=== PATIENT | male | born 1975 | race Caucasian/White ===

== ENCOUNTER 2022-11-07 14:32 | Emergency (ER) | payer OTHER, SELFPAY ==
--- NOTE | ~2022-11-07 | CT_ITS ---
EXAMINATION: CT ABDOMEN AND PELVIS WITHOUT CONTRAST CLINICAL INFORMATION: r flank pain ?stone. COMPARISON: No pertinent prior studies are available for comparison. TECHNIQUE: Multidetector volumetric imaging was performed from the superior aspect of the liver through the pubic symphysis without contrast per renal stone protocol. Sagittal and coronal reformatted images were obtained on the technologist workstation. This CT examination was performed using dose optimization techniques as appropriate, variously including the following: *Automated exposure control *Adjustment of mA and/or kV according to patient size (this includes techniques or standardized protocols for targeted exams where dose is matched to indication/reason for exam; i.e. extremities or head) *Use of iterative reconstruction technique DLP: 564 mGy-cm. FINDINGS: LUNG BASES: Minimal bibasilar dependent atelectasis LIVER, GALLBLADDER, BILIARY TREE: The non-contrast liver is normal in size, shape, and attenuation. No focal hepatic lesion or biliary ductal dilatation is present. The gallbladder is distended but otherwise unremarkable with no evidence of radiopaque gallstones, gallbladder wall thickening, or obvious pericholecystic inflammatory changes. PANCREAS: Unremarkable. SPLEEN: Unremarkable. ADRENAL GLANDS: Unremarkable. KIDNEYS AND URETERS: Small low-attenuation probable cyst in the anterior upper pole of the left kidney, too small to characterize further on this noncontrast examination there is also similar low-attenuation probable small cyst in the lateral mid to lower pole of the contralateral right kidney. The kidneys are otherwise normal in size, shape, and attenuation. No hydronephrosis, hydroureter, or perinephric stranding. There is a nonobstructing 3 mm calcification in the lower pole collecting system of the left kidney. The right collecting system and right ureter are nondilated however there is a 4 mm calcification in the right distal ureter approximately 2 cm proximal to the right ureterovesicular junction BLADDER: Decompressed but otherwise unremarkable GASTROINTESTINAL TRACT: The small and large bowel are unremarkable. The appendix is unremarkable. ABDOMINAL WALL: No significant hernia is appreciated. LYMPHOVASCULAR STRUCTURES: No lymphadenopathy. The aorta is unremarkable.. PELVIC VISCERA: Unremarkable. OSSEUS STRUCTURES: Degenerative changes at L5/S1. CT/CT abdomen pelvis wo IV con IMPRESSION: 4 mm calcification in the right distal ureter approximately 2 cm proximal to the right ureterovesicular junction. No significant hydronephrosis or hydroureter. Nonobstructing 3 mm calcification in the lower pole collecting system of the left kidney.
--- NOTE | ~2022-11-07 | US_ITS ---
EXAMINATION: US RETROPERITONEAL LIMITED (RENAL ONLY) CLINICAL INFORMATION: Right flank pain, hematuria. COMPARISON: None available. TECHNIQUE: Routine grayscale imaging of kidneys was performed. FINDINGS: RIGHT KIDNEY: 12.1 x 4.9 x 5.5 cm (SAG x AP x TRV). The kidney is normal in size, contour, and echogenicity. Renal cortical thickness is normal. There is an anechoic cyst mid/lower pole measuring 0.9 x 0.6 x 0.8. No additional cyst seen. There are no echogenic stones or hydronephrosis. LEFT KIDNEY: 12.1 x 5.9 x 5.7 cm (SAG x AP x TRV). The kidney is normal in size, contour, and echogenicity. Renal cortical thickness is normal. No calculi or focal parenchymal lesions. No hydronephrosis. US/US renal BI IMPRESSION: Simple anechoic cyst mid/lower pole right kidney. No followup needed. Unremarkable left kidney.
[2022-11-07 15:28] VITALS: BP 115/70; PULSE 80; RESP 16; TEMP 36.7; O2SAT 99; BMI 28.7
--- NOTE | 2022-11-07 15:28 | ED_ITS ---
HPI - General Adult General Chief complaint: Abdominal Pain Stated complaint: pain r kidney area Time Seen by Provider: 11/07/22 21:28 Source: patient Mode of arrival: ambulatory Limitations: no limitations History of Present Illness HPI narrative: Patient with No significant past medical history noticed sudden onset of sharp pain in the right flank area for last 2 days off and on with yao hematuria nausea no family history of kidney stone pain radiating to the right lower abdominal area no fever no chills no dysuria or frequency no testicular pain Related Data Previous Rx's Medication Instructions Recorded tramadol 50 mg tablet 50 mg PO Q6H PRN pain #20 tabs 11/07/22 Allergies Allergy/AdvReac Type Severity Reaction Status Date / Time No Known Allergies Allergy Verified 11/07/22 15:30 Review of Systems Review of Systems: Yes all other systems are reviewed and are negative [facility] Social History Social History Alcohol intake: never Smoked in Last 30 Days: No Advance Directives: No Advance Directives Information Provided: Yes Physical Exam ED Vital Signs: Vital Signs - 24 hr 11/07/22 15:28 11/07/22 21:57 Temperature 98.1 F 97.9 F Pulse Rate 80 77 Respiratory Rate 16 18 Blood Pressure 115/70 123/82 Pulse Oximetry 99 98 Oxygen Delivery Method Room Air Room Air BMI result Body Mass Index 28.7 Appearance: Alert. Oriented X3. No acute distress. ENT: Pharynx normal. Oral Mucosa moist Neck: Normal inspection. Neck supple. CVS: Normal heart rate and rhythm. Pulses normal. Respiratory: No respiratory distress. Equal air entry bilateral, no wheezing/rales/rhonchi Abdomen: Soft and nontender. Bowel sounds are present, no mass palpable, no CVA tenderness Skin: Skin warm and dry. Normal skin color. Normal skin turgor. Extremities: No lower extremity edema. No calf tenderness Neuro: Oriented X 3. Course Course Course Narrative: RME: 47yo M w/no sig PMHx c/o R flank pain x few days w/hematuria noted today. Admits pain improves with using the bathroom. Also reports nausea. denies fever, vomiting Labs, UA, renal US ordered Full HPI, ROS and PE to be performed by primary ED provider. Medical Decision Making Medical Decision Making MDM Narrative: Patient with right flank pain likely kidney stone ultrasound shows small cysts no hydronephrosis will get CT scan to rule out stone/mass Patient's CT scan showed 4 mm distal right ureteric stone nonobstructive patient is pain-free at this time of discharge patient home advised to follow-up with urologist will give him tramadol for pain Lab Data MDM Lab Attestation statement: I reviewed the patient's lab results. 11/07/22 15:57 11/07/22 15:57 Labs: Lab Results 11/07/22 11/07/22 11/07/22 Range/Units 15:57 15:57 16:05 WBC 7.8 (4.8-10.8) X10*3/uL RBC 5.78 (4.60-5.80) X10*6/uL Hgb 14.7 (14.0-18.0) g/dl Hct 47.2 (42.0-52.0) % MCV 81.7 (80.0-98.0) fL MCH 25.4 L (27.0-33.0) pg MCHC 31.1 (31.0-36.0) g/dl RDW 13.2 (11.0-16.0) % Plt Count 233 (160-400) X10*3/uL MPV 11.3 (9.4-12.4) fL Immature Gran % (Auto) 0.3 (0.0-0.4) % Neut % (Auto) 68.8 (45-73) % Lymph % (Auto) 19.2 L (20-40) % [place] % (Auto) 10.8 (2-11) % Eos % (Auto) 0.6 (0-4) % Baso % (Auto) 0.3 (0-2) % Lymph # (Auto) 1.5 (1.2-4.9) X10*3/uL [place] # (Auto) 0.8 (0.1-1.2) X10*3/uL Eos # (Auto) 0.1 (0.0-0.4) X10*3/uL Baso # (Auto) 0.0 (0.0-0.2) X10*3/uL Abs Immat Gran (auto) 0.02 (0.00-0.03) X10*3/uL Absolute Neuts (auto) 5.4 (2.0-8.3) x10*3/uL Absolute Nucleated RBC 0.000 (0.0-0.012) X10*3/uL Nucleated RBC % (auto) 0.0 (0.0-0.2) /100WBC Sodium 143 (135-145) mmol/L Potassium 3.8 (3.3-5.1) mmol/L Chloride 109 H (96-108) mmol/L Carbon Dioxide 28 (22-29) mmol/L Anion Gap 10 L (12-20) BUN 15 (9-16) mg/dL Creatinine 0.93 (0.5-1.4) mg/dL Estim Creat Clear Calc 111.2 Estimated GFR > 60 Random Glucose 76 (60-115) mg/dL Calcium 9.2 (8.4-10.2) mg/dL Total Bilirubin 0.5 (0.0-1.0) mg/dL Direct Bilirubin 0.2 (0.0-0.5) mg/dL AST 18 (5-37) U/L ALT 23 (0-40) U/L Alkaline Phosphatase 94 (39-117) U/L Total Protein 7.0 (6.5-8.0) g/dL Albumin 4.0 (3.5-5.0) g/dL Lipase 22 (8-78) U/L Urine Color Yellow Urine Appearance Clear Urine pH 6.0 (5.0-9.0) Ur Specific [place] 1.025 (1.005-1.025) Urine Protein Trace (Neg-Trace) mg/dL Urine Glucose (UA) 100 H (Negative) mg/dL Urine Ketones Negative (Negative) mg/dL Urine Blood Large (3+) H (Negative) Urine Nitrite Negative (Negative) Ur Leukocyte Esterase Negative (Negative) Urine RBC >20 H (0-2) /HPF Urine WBC 0-5 (0-5) /HPF Ur Squamous Epith Cells 0-2 (0-2) /HPF Urine Bacteria None Seen (None Seen) Hyaline Casts 0-2 (0-2) /LPF Radiology Impression Discussion of test interpretation with radiology: I have reviewed the radiologist's reading. Radiologist Impression: [address] [address] [address] Scan Report Signed Patient: Yasmani Camacho MR#: [id number] : 1975 Acct:[id number] Age/Sex: 47 / M ADM Date: 11/07/22 Loc: HO.ED Attending Dr: Ordering Physician: Zack Head MD Date of Service: 11/07/22 Procedure(s): CT abdomen pelvis wo IV con Accession Number(s): [id number] cc: Zack Head MD~ EXAMINATION: CT ABDOMEN AND PELVIS WITHOUT CONTRAST CLINICAL INFORMATION: r flank pain ?stone. COMPARISON: No pertinent prior studies are available for comparison. TECHNIQUE: Multidetector volumetric imaging was performed from the superior aspect of the liver through the pubic symphysis without contrast per renal stone protocol. Sagittal and coronal reformatted images were obtained on the technologist workstation. This CT examination was performed using dose optimization techniques as appropriate, variously including the following: *Automated exposure control *Adjustment of mA and/or kV according to patient size (this includes techniques or standardized protocols for targeted exams where dose is matched to indication/reason for exam; i.e. extremities or head) *Use of iterative reconstruction technique DLP: 564 mGy-cm. FINDINGS: LUNG BASES: Minimal bibasilar dependent atelectasis LIVER, GALLBLADDER, BILIARY TREE: The non-contrast liver is normal in size, shape, and attenuation. No focal hepatic lesion or biliary ductal dilatation is present.? The gallbladder is distended but otherwise unremarkable with no evidence of radiopaque gallstones, gallbladder wall thickening, or obvious pericholecystic inflammatory changes. PANCREAS: Unremarkable. SPLEEN: Unremarkable. ADRENAL GLANDS: Unremarkable. KIDNEYS AND URETERS: Small low-attenuation probable cyst in the anterior upper pole of the left kidney, too small to characterize further on this noncontrast examination there is also similar low-attenuation probable small cyst in the lateral mid to lower pole of the contralateral right kidney. The kidneys are otherwise normal in size, shape, and attenuation. No hydronephrosis, hydroureter, or perinephric stranding. There is a nonobstructing 3 mm calcification in the lower pole collecting system of the left kidney. The right collecting system and right ureter are nondilated however there is a 4 mm calcification in the right distal ureter approximately 2 cm proximal to the right ureterovesicular junction BLADDER: Decompressed but otherwise unremarkable GASTROINTESTINAL TRACT: The small and large bowel are unremarkable. The appendix is unremarkable. ABDOMINAL WALL: No significant hernia is appreciated. LYMPHOVASCULAR STRUCTURES: No lymphadenopathy.? The aorta is unremarkable.. PELVIC VISCERA: Unremarkable. OSSEUS STRUCTURES: Degenerative changes at L5/S1. CT/CT abdomen pelvis wo IV con IMPRESSION: 4 mm calcification in the right distal ureter approximately 2 cm proximal to the right ureterovesicular junction. No significant hydronephrosis or hydroureter. Nonobstructing 3 mm calcification in the lower pole collecting system of the left kidney Discharge Plan Discharge Clinical Impression: Calculus of kidney Patient Disposition: Home, Self-Care Instructions: Kidney Stones (ED) Additional Instructions: You have small kidney stone in the right kidney tube which will likely going to pass Drink plenty of fluids Pain medication as prescribed Follow-up with urologist if pain continues Prescriptions: New tramadol 50 mg tablet 50 mg PO Q6H PRN (Reason: pain) Qty: 20 0RF Referrals: Franky Mccullough MD [Physician] - 1 week Interventions: ED Discharge Assessment Last Done: 11/07/22 23:07 Discharge Date/Time: 11/07/22 23:07
[2022-11-07 16:05] LABS: Basophils Percent Auto 0.3 % (0-2); Eosinophils Absolute Auto 0.1 X10*3/uL (0.0-0.4); Eosinophils Percent Auto 0.6 % (0-4); Hematocrit 47.2 % (42.0-52.0); Hemoglobin 14.7 g/dl (14.0-18.0); Imm Gran Abs Auto 0.02 X10*3/uL (0.00-0.03); Imm Gran Pct Auto 0.3 % (0.0-0.4); Lymphocytes Absolute Auto 1.5 X10*3/uL (1.2-4.9); Lymphocytes Percent Auto 19.2 % (20-40); MANUAL DIFF FLAG NO; Mean Corpuscular HGB Conc 31.1 g/dl (31.0-36.0); Mean Corpuscular Hemoglobin 25.4 pg (27.0-33.0); Mean Corpuscular Volume 81.7 fL (80.0-98.0); Mean Platelet Volume 11.3 fL (9.4-12.4); Monocytes Absolute Auto 0.8 X10*3/uL (0.1-1.2); Monocytes Percent Auto 10.8 % (2-11); Neutrophils Absolute Auto 5.4 x10*3/uL (2.0-8.3); Neutrophils Percent Auto 68.8 % (45-73); Platelet Count 233 X10*3/uL (160-400); Red Blood Count 5.78 X10*6/uL (4.60-5.80); Red Cell Distribution Width 13.2 % (11.0-16.0); White Blood Count 7.8 X10*3/uL (4.8-10.8)
[2022-11-07 16:18] LABS: Appearance Urine Clear; Color Urine Yellow; Glucose Urine UA 100 mg/dL (Negative); Leukocyte Esterase Urine Negative (Negative); Nitrite Urine Negative (Negative); Specific Gravity - Urine 1.025 (1.005-1.025); UMIC TRIGGER UACC YES; Urine Blood Large (3+) (Negative); Urine Ketones Negative (Negative); Urine Protein Trace mg/dL (Neg-Trace)
[2022-11-07 16:35] LABS: Bacteria Urine None Seen (None Seen); Hyaline Casts Urine 0-2 /LPF (0-2); RBC Urine >20 /HPF (0-2); Squamous Epithelial Cell Urine 0-2 /HPF (0-2); WBC Urine 0-5 /HPF (0-5)
[2022-11-07 17:02] LABS: Alanine Aminotransferase 23 U/L (0-40); Alkaline Phosphatase 94 U/L (39-117); Anion Gap 10 (12-20); Aspartate Amino Transferase 18 U/L (5-37); Bilirubin Direct 0.2 mg/dL (0.0-0.5); Bilirubin Total 0.5 mg/dL (0.0-1.0); Blood Urea Nitrogen 15 mg/dL (9-16); Calcium 9.2 mg/dL (8.4-10.2); Carbon Dioxide 28 mmol/L (22-29); Chloride 109 mmol/L (96-108); Creatinine Clr Calc Pharmacy 111.2; Estimated Glomerular Filt Rate > 60; Glucose Random 76 mg/dL (60-115); Lipase 22 U/L (8-78); Potassium 3.8 mmol/L (3.3-5.1); Sodium 143 mmol/L (135-145)
[2022-11-07 21:57] VITALS: BP 123/82; PULSE 77; RESP 18; TEMP 36.6; O2SAT 98
== END 2022-11-07 23:07 | disposition home or self-care (01) ==
PROVIDERS: Physician Assistant; Emergency Provider Internal Medicine
DX: N20.2 Calculus of kidney with calculus of ureter (principal)
CPT/HCPCS: 36415; 74176; 76775; 80048; 80076; 81001; 83690; 85025; 99284

== ENCOUNTER 2023-04-12 15:21 | Emergency (ER) | payer OTHER, SELFPAY ==
--- NOTE | ~2023-04-12 | CT_ITS ---
EXAMINATION: CT brain, CT cervical spine and lumbar spine x-ray. CLINICAL INDICATION: Low back pain. COMPARISON: None. TECHNIQUE: Lumbar spine 3 views. 5 mm thin axial and reformatted 2 mm thin sagittal and coronal images of brain were obtained. Subsequently axial 3 mm thin and reformatted 2 mm thin sagittal and coronal images of cervical spine were obtained. DLP 1173. This CT examination was performed using dose optimization technique as appropriate, variously including the following: Automated exposure control Adjustment of MA and/or KV according to patient size(this includes techniques or standardized protocols for targeted exams where dose is matched to indication/reason for exam; extremities or head. Use of iterative reconstruction techniques. FINDINGS: Lumbar spine: There is normal lumbar lordosis. The vertebral heights, alignment and the disc heights are normal. No visible acute fracture, dislocation or lytic process seen. The SI joints are symmetrical. The paravertebral soft tissues are normal. Brain: There is no acute intra-axial, extra-axial bleed, masses or midline shift. There is no acute infarction evolution. There is no edema or mass effect. The lateral ventricles are symmetrical in size and configuration without enlargement. There is no abnormality seen in the posterior fossa. Bone windows reveal no calvarial abnormality. No scalp soft tissue abnormality seen. There is mucoperiosteal thickening right frontal, left maxillary sinuses. Rest of the paranasal sinuses and mastoid air cells are well-aerated. Cervical spine: On sagittal reconstructed images there is maintained cervical lordosis. The vertebral heights and alignment is normal. There is loss of C5-C6 and C6-C7 disc heights with mild ventral and posterior spondylosis. The craniovertebral junction and the C1-C2 alignment is normal. There is no visible acute fracture, dislocation or subluxation seen. The airway is widely patent. The lung apices are clear. And the thyroid lobes are symmetric and normal. The prevertebral and paravertebral soft tissues are normal. CT/CT cervical spine wo IV con IMPRESSION: 1. No acute intracranial process seen. 2. There is no visible acute fracture, dislocation or subluxation seen in lumbar spine. 3. There are degenerative disc changes C5-C6 and C6-C7 disc levels with ventral and posterior spondylosis. No visible acute fracture or dislocation seen.
[2023-04-12 16:03] VITALS: BP 125/70; PULSE 80; RESP 18; TEMP 37; O2SAT 97; BMI 27.2
--- NOTE | 2023-04-12 16:04 | ED_ITS ---
HPI - Fall General Chief Complaint: Fall Stated Complaint: fell on ice, hit head, dizzy Time Seen by Provider: 04/12/23 16:25 Source: patient Mode of arrival: ambulatory Limitations: no limitations History of Present Illness HPI Narrative: Patient is a 47 year old assigned male at with no reported medical history presenting to the emergency department today with a headache, dizziness, and back pain after a fall. Patient states that earlier today he was walking and fell backwards, hitting his head. Patient denies any lightheadedness, abdominal pain, nausea, vomiting, fever, chills, blurry vision, double vision, loss of vision, chest pain, difficulty breathing, shortness of breath, night sweats, pain with urination, increased urinary frequency, increased urinary urgency, blood in his urine or stool, syncope or a near syncopal episode, bowel incontinence, bladder incontinence, bowel retention, bladder retention, or any other complaints at this time. MD complaint: fall Onset (ago): hour(s) Fall from: standing Symptoms prior to fall: none Related Data Previous Rx's Medication Instructions Recorded tramadol 50 mg tablet 50 mg PO Q6H PRN pain #20 tabs 11/07/22 Allergies Allergy/AdvReac Type Severity Reaction Status Date / Time No Known Allergies Allergy Verified 04/12/23 16:07 Review of Systems Constitutional: Constitutional: Reports no additional constitutional complaints, Denies chills, Denies fever(s), Reports headache(s) and Denies night sweats Eyes: Eyes: Reports no additional eye complaints, Denies blurry vision, Denies change in vision, Denies diplopia, Denies eye discharge, Denies loss of vision and Denies eye pain ENT: Reports dizziness and Reports headache(s) Cardiovascular: Cardiovascular: Reports no additional cardiovascular complaints, Denies chest pain, Denies lightheadedness, Denies Loss of Consciousness and Denies dyspnea Respiratory: Respiratory: Reports no additional respiratory complaints and Denies dyspnea Gastrointestinal: Gastrointestinal: Reports no additional gastrointestinal complaints, Denies abdominal pain, Denies melena, Denies hematochezia, Denies change in bowel habits and Denies change in stool character Genitourinary: Genitourinary: Reports no additional male genitourinary complaints, Denies hematuria, Denies oliguria, Denies difficulty urinating, Denies dysuria, Denies urinary frequency, Denies urinary hesitancy, Denies urinary incontinence and Denies urinary urgency Musculoskeletal: Musculoskeletal: Reports no additional musculoskeletal complaints, Reports back pain, Denies numbness and Denies tingling Neurologic: Reports dizziness, Reports headache(s), Denies loss of vision, Denies numbness and Denies tingling Psychiatric: Psychiatric: Reports no additional psychiatric complaints Endocrine: Endocrine: Reports no additional endocrine complaints Hematologic/Lymphatic: Hematologic/Lymphatic: Reports no additional hematologic/lymphatic complaints Allergic/Immunologic: Allergic/Immunologic: Reports no additional allergic/immunologic complaints PMFSH Past Medical History Attestation statement: The following information was validated with the patient. Source: old records reviewed and nursing notes reviewed Onset Date is defined in the Problem List Problems that require an onset date and time if occurred within 24 hrs of arrival to the ED Aortic Dissection and Rupture; Neurologic impairment; Cardiopulmonary Arrest; Endotracheal Intubation; Insertion or Replacement of Mechanical Circulatory Assist Device Social History Social History Alcohol intake: never Advance Directives: No Advance Directives Information Provided: No Physical Exam Vital Signs: Vital Signs: Last Vital Signs Temp 98.6 F 04/12/23 16:03 Pulse 80 04/12/23 16:03 Resp 18 04/12/23 16:03 BP 125/70 04/12/23 16:03 Pulse Ox 97 04/12/23 16:03 O2 Del Method Room Air 04/12/23 16:03 BMI result Body Mass Index 27.2 Const: General: cooperative, no acute distress, alert and awake Nutritional Appearance: well nourished Orientation/consciousness: patient oriented x3 Limitations: no limitations HEENT: Head: Yes normal to inspection and Yes atraumatic Ears: hearing grossly normal bilaterally and external ears normal General nose exam: Normal external nose present, no nasal discharge noted and no epistaxis Face and sinus: Yes normal facial exam, No abrasion and No laceration Mouth: Normal oral and palatal mucosa present, no drooling and no muffled voice Eyes: General: appearance normal, both eyes and all related structures Periorbital: periorbital findings normal Eyelids: Yes eyelids normal Conjunctivae: conjunctivae normal Pupils: Equal, round and reactive pupils present EOM: EOMs intact bilaterally Neck: Neck: Yes normal visual inspection, Yes full ROM and Yes no lymphadenopathy Chest: Chest palpation & inspection: normal inspection of the chest Resp: Effort & Inspection: normal respiratory effort and able to speak in complete sentences GI: Inspection: Yes normal to inspection Neuro: General: patient oriented x3 and moves all extremities Cranial nerves: Yes Equal, round and reactive pupils present Cognition (Neuro): normal cognition Motor exam (neuro): 5/5 motor strength present throughout Sensory Exam: Normal double simultaneous stimulation for sensation Coordination: [id number] test normal Extrem: General: Yes normal to inspection, Yes full ROM and Yes capillary refill normal Psych: Appearance: grossly normal Mental Status: mental status grossly normal Affect: normal affect Attitude: cooperative Thought process: Normal thought process present Thought content: Normal thought content present Insight: Good insight present (Psych) Course Course Course Narrative: RME:?47 yo male here with headache and low back pain s/p slip and fall on ice infront of his house. fell onto his back. +head strike and LOC. not on AC. complains of dizziness and intermittent blurred vision. denies N/V, numbness/tingling/weakness, bowel/bladder incontinence or retention. midline lumbar spinous tenderness, no step off deformity. perrla. exam nonfocal. ambulating w/ steady gait. plan for imaging Full HPI, ROS and PE to be performed by the primary ED provider. Medications Administered Discontinued Medications Generic Name Dose Route Start Last Admin Trade Name Freq PRN Reason Stop Dose Admin Ketorolac Tromethamine 15 mg 04/12/23 17:06 04/12/23 17:32 Ketorolac Tromethamine 15 Mg/Ml Vial IM 04/12/23 17:07 15 mg ONCE ONE Administration Medical Decision Making Medical Decision Making [facility] Narrative: Patient is a 47 year old assigned male at with no reported medical history presenting to the emergency department today with a headache, dizziness, and low back pain after a fall. Patient's physical exam was unremarkable. Patient's lumbar spine x-ray showed no acute process. Patient's head and cervical spine CT s showed no acute process. I explained my physical exam findings as well as all test results to the patient. I answered all questions asked by the patient. I stressed the importance of the patient taking his medication as prescribed. I stressed the importance of the patient following up with his primary care provider. I stressed the importance of the patient returning to the emergency department immediately if his symptoms were to worsen or if he were to develop any dizziness, shortness of breath, difficulty breathing, chest pain, blurry vision, loss of vision, nausea, vomiting, abdominal pain, fever, chills, back pain, or any other complaints. Patient verbalized agreement and understanding with this treatment plan and discharge. Differential Diagnosis Differential Diagnoses: The differential diagnosis associated with the presentation includes Fall Back pain Headache Dizziness Concussion Admission/Observation Consideration of admission/observation: Escalation of care including admission/observation considered Patient would have been admitted to the hospital had his work up had any findings where hospital admission was appropriate and his clinical presentation warranted hospital admission. Independent Interpretation I performed an independent interpretation of an: Plain X-Ray and CT Scan Interpretation: My interpretation is in agreement with the radiologist's impression of these imaging studies. EXAMINATION: CT brain, CT cervical spine and lumbar spine x-ray. CLINICAL INDICATION: Low back pain. COMPARISON: None. TECHNIQUE: Lumbar spine 3 views. 5 mm thin axial and reformatted 2 mm thin sagittal and coronal images of brain were obtained. Subsequently axial 3 mm thin and reformatted 2 mm thin sagittal and coronal images of cervical spine were obtained. DLP 1173. This CT examination was performed using dose optimization technique as appropriate, variously including the following: Automated exposure control Adjustment of MA and/or KV according to patient size(this includes techniques or standardized protocols for targeted exams where dose is matched to indication/reason for exam; extremities or head. Use of iterative reconstruction techniques. FINDINGS: Lumbar spine: There is normal lumbar lordosis. The vertebral heights, alignment and the disc heights are normal. No visible acute fracture, dislocation or lytic process seen. The SI joints are symmetrical. The paravertebral soft tissues are normal. Brain: There is no acute intra-axial, extra-axial bleed, masses or midline shift. There is no acute infarction evolution. There is no edema or mass effect. The lateral ventricles are symmetrical in size and configuration without enlargement. There is no abnormality seen in the posterior fossa. Bone windows reveal no calvarial abnormality. No scalp soft tissue abnormality seen. There is mucoperiosteal thickening right frontal, left maxillary sinuses. Rest of the paranasal sinuses and mastoid air cells are well-aerated. Cervical spine: On sagittal reconstructed images there is maintained cervical lordosis. The vertebral heights and alignment is normal. There is loss of C5-C6 and C6-C7 disc heights with mild ventral and posterior spondylosis. The craniovertebral junction and the C1-C2 alignment is normal. There is no visible acute fracture, dislocation or subluxation seen. The airway is widely patent. The lung apices are clear. And the thyroid lobes are symmetric and normal. The prevertebral and paravertebral soft tissues are normal. CT/CT head/brain wo IV con IMPRESSION: 1. No acute intracranial process seen. 2. There is no visible acute fracture, dislocation or subluxation seen in lumbar spine. 3. There are degenerative disc changes C5-C6 and C6-C7 disc levels with ventral and posterior spondylosis. No visible acute fracture or dislocation seen. Dictated By: Cristobal Henson MD Signed By: Electronically signed by Cristobal Henson MD 04/12/23 5613 Radiology Impression Discussion of test interpretation with radiology: I have reviewed the radiologist's reading. Discharge Plan Discharge Clinical Impression: Fall Patient Disposition: Home, Self-Care Instructions: Fall Prevention (ED) Additional Instructions: Follow up with your primary care provider. Return to the emergency department immediately if your symptoms worsen or if you develop any dizziness, shortness of breath, difficulty breathing, chest pain, blurry vision, loss of vision, nausea, vomiting, abdominal pain, fever, chills, back pain, or any other complaints. Prescriptions: No Action tramadol 50 mg tablet 50 mg PO Q6H PRN (Reason: pain) Qty: 20 0RF Referrals: [facility] [place] (Call to establish and follow up with a primary care provider. If you already have a primary care provider, please follow up with them.) [facility]] (Call to establish and follow up with a primary care provider. If you already have a primary care provider, ple ase follow up with them.) [facility] [Provider Group] (Call to establish and follow up with a primary care provider. If you already have a primary care provider, please follow up with them.) Stand Alone Forms: Work/School Release Interventions: ED Discharge Assessment Last Done: 04/12/23 17:38 Discharge Date/Time: 04/12/23 17:40 Print Language: Slovak
[2023-04-12] MEDS: Ketorolac Tromethamine 15 MG/ML VIAL IM (17:32)
== END 2023-04-12 17:40 | disposition home or self-care (01) ==
PROVIDERS: Emergency Provider Emergency Medicine Emergency Medical Services
DX: Z04.3 Encounter for examination and observation following other accident (principal); R51.9 Headache, unspecified; R42 Dizziness and giddiness; M54.50 Low back pain, unspecified; Z91.81 History of falling
CPT/HCPCS: 70450; 72100; 72125; 99283; 99284; J1885

== ENCOUNTER 2024-10-06 19:54 | Emergency (ER) | payer OTHER, SELFPAY ==
--- NOTE | ~2024-10-06 | XR_ITS ---
CLINICAL HISTORY: pain, trauma 3 views lumbar spine Comparison: 04/12/2023 Findings: Normal alignment. No acute fractures or dislocation. There are degenerative disc changes at L5-S1.. IMPRESSION: No acute findings. This document has been electronically signed by: Cheko El MD on 10/06/2024 20:45:57
[2024-10-06 20:10] VITALS: BP 125/70; PULSE 83; RESP 16; TEMP 36.6; O2SAT 98; BMI 28.0
--- NOTE | 2024-10-06 20:13 | ED_ITS ---
HPI - General Adult General Chief complaint: Back Pain/Injury Stated complaint: fell downstairs 3 days ago lower back pain Time Seen by Provider: 10/06/24 21:48 Source: patient Mode of arrival: ambulatory Limitations: no limitations History of Present Illness ED Provider: Dr. Ava Herbert HPI narrative: 49-year-old male with no significant past medical history presenting with upper lumbar/low chest pain after a fall that occurred 3 days ago. States he was walking down some steps at his house and lost his footing, falling backward onto his mid back and rib cage. Since that time has been having severe pain in his having a difficult time taking deep breaths due to the pain. Admits to difficulty moving as well. Has been taking ibuprofen, muscle relaxers and gabapentin for pain at home without relief. He has an old prescription for gabapentin from some carpal tunnel pain he had been having a year ago. Admits the medications have not been helping at all. No associated fever, cough, sputum production, difficulty breathing, loss of bowel or bladder control, saddle anesthesia, lower extremity weakness or numbness. Related Data Previous Rx's ?Medication ?Instructions ?Recorded tramadol 50 mg tablet 50 mg PO Q6H PRN pain #20 ta bs 11/07/22 hydrocodone 5 mg-acetaminophen 325 1 tab PO Q8H PRN se miriam pain 10/06/24 mg tablet (scale score 7-10) #10 tabs Allergies Allergy/AdvReac Type Severity Reaction Status Date / Time No Known Allergies Allergy Verified 10/06/24 20:13 Review of Systems Review of Systems: Yes all other systems are reviewed and are negative (As per HPI) [facility] Past Medical History Attestation statement: The following information was validated with the patient. (Denies medical history) Source: old records reviewed Social History Social History Alcohol intake: never Smoked in Last 30 Days: No Use of substances other than those prescribed or required for medical reasons: No Advance Directives: No Advance Directives Information Provided: No Do you have a plan to hurt others: No Plan Physical Exam ED Vital Signs: Vital Signs - 24 hr 10/06/24 20:10 Temperature 97.8 F Pulse Rate 83 Respiratory Rate 16 Blood Pressure 125/70 Pulse Oximetry 98 Oxygen Delivery Method Room Air BMI result Body Mass Index 28.0 GENERAL: Uncomfortable-Appearing, conversant, mild distress due to pain. SKIN: Normal skin color for ethnicity, warm, dry, intact, no rashes noted. HEENT: Normocephalic, atraumatic, no stridor, airway patent, no raccoon's eyes, no Javier sign, dentition intact, EOMI. NECK: Soft, supple, full ROM, midline structures nontender, no step-offs, no deformities, no lymphadenopathy. CHEST: Heart regular rate and rhythm, no murmurs, symmetric chest rise and fall, no crepitus, tenderness to palpation overlying the posterior 11th and 12th ribs. PULMONARY: Clear to auscultation bilaterally, no labored breathing, no wheezes/rhales/rhonchi. ABDOMINAL: Soft, nondistended, nontender, positive bowel sounds in all quadrants. : Deferred. MUSCULOSKELETAL: Normal tone, full range of motion, no deformities, no contusions, no midline spine tenderness, no step-offs. NEURO: Alert and oriented x3, CN II through XII intact, equal strength and sensation bilateral upper and lower extremities, no focal neurologic deficits. PSYCHIATRIC: Anxious affect, fluid speech, good eye contact and appropriate demeanor. Course Course Course Narrative: Medical screening exam performed. Please refer to detailed history, exam, evaluation, and management by primary provider. 49-year-old male presents after a slip and fall down stairs landing on his low back. No previous injury. Ambulatory since then. No bowel or bladder incontinence. Declined analgesia or ice. Check x-ray. Medical Decision Making Medical Decision Making MDM Narrative: Patient presents today with a chief complaint of back pain. Differential diagnosis includes musculoskeletal pain, osseous abnormality such as fracture or tumor, infection, spinal cord pathology such as cauda equina syndrome, ligamentous or disc pathology, vascular abnormalities, among many others. I reviewed the list of red flag features such as trauma, weight loss, abnormal neurological findings such as weakness, bowel or bladder incontinence, saddle paresthesia, as well as history of cancer, IV drug abuse, fever, to list a few. Based on history and physical examination, workup was initiated and results were reviewed. 10:16 p.m. I suspect that the patient is having rib contusions/cracks after his fall. His pain is described as posterior, lower thorax pain that is nonradiating. No red flags on history or exam. He has a no focal neurologic deficits on exam and is ambulatory without assistance. Provided with pain medication for home. Instructed not to use his gabapentin and muscle relaxers and hydrocodone at the same time. Discussed importance of follow-up with primary care as well as strict return precautions to the emergency department. Discharged home in stable condition. Differential Diagnosis Differential Diagnoses: The differential diagnosis associated with the presentation includes (As above) Radiology Impression Discussion of test interpretation with radiology: I have reviewed the radiologist's reading. Radiologist Impression: 3 views lumbar spine Comparison: 04/12/2023 Findings: Normal alignment. No acute fractures or dislocation. There are degenerative disc changes at L5-S1.. IMPRESSION: No acute findings. This document has been electronically signed by: Cheko El MD on 10/06/2024 20:45:57 Prescription Management I considered prescription management with: Pain Medication Discharge Plan Discharge Clinical Impression: Bilateral contusion of ribs, Fall from ground level, Lumbar contusion Patient Disposition: Home, Self-Care Instructions: Low Back Strain (ED), Rib Contusion (ED) Additional Instructions: Return to the emergency department with any new or worsening symptoms including: Worsening pain in your back despite medication, fevers greater than 100?, loss of bowel or bladder control, any new symptom that concerns you. Do not take pain medications while driving. They can make you drowsy. Drink plenty of water and take pain medication with food. Prescriptions: New hydrocodone-acetaminophen 5-325 mg tablet 1 tab PO Q8H PRN (Reason: severe pain (scale score 7-10)) Qty: 10 0RF Rx Instructions: Partial Fill upon patient request. No Action tramadol 50 mg tablet 50 mg PO Q6H PRN (Reason: pain) Qty: 20 0RF Print Language: Trinidadian
--- OUTSIDE RECORDS SUMMARY | 2024-10-06 20:35 | XMS_ITS | Clinical Summary ---
Author Organization [facility] ity Address [address] [place] [address] Care Team Providers Care Medical Claims Assistant Name Role Phone Ehsan Rivera MD Primary Care Provider Social History Tobacco Use Types Packs/Day Years Used Date Smoking Tobacco: Never Assessed Sex and Gender Information Value Date Recorded Sex Assigned at Not on file Legal Sex Male 3:34 PM EST Gender Identity Not on file Sexual Orientation Not on file Plan of Treatment Health Maintenance Due Date Last Done Comments DTaP,Tdap,and Td Vaccines (1 - Tdap) 09/21/1994 Hepatitis B Vaccines (1 of 3 - 19+ 3-dose series) 09/21/1994 COVID-19 Vaccine ( - 2023-2 5 season) 2023 Influenza Vaccine (#1) 2024 HIB Vaccines Aged Out No longer eligi ble based on patient's age to complete this topic HPV Vaccines Aged Out No longer eligi ble based on patient's age to complete this topic Hepatitis A Vaccines Aged Out No long er eligible based on patient's age to complete this topic IPV Vaccines Aged Out No longer eligi ble based on patient's age to complete this topic MMR Vaccines Aged Out No longer eligi ble based on patient's age to complete this topic Meningococcal ACWY Vaccine Aged Out N o longer eligible based on patient's age to complete this topic Meningococcal B Vaccine Aged Out No l onger eligible based on patient's age to complete this topic Pneumococcal Vaccine: Pediat rics (0 to 5 Years) and At-Risk Patients (6 to 49 Years) Aged Out No longer eligible b ased on patient's age to complete this topic RSV Immunization Patients Un nico 20 months Aged Out No longer eligible b ased on patient's age to complete this topic Varicella Vaccines Aged Out No longer eligible based on patient's age to complete this topic Care Teams Medical Claims Assistant Relationship Specialty Start Date End Date Ehsan Rivera MD [address] [place] [address] [place] [id number] PCP - General Internal Medicine 06/24/19
[2024-10-06 22:01] VITALS: BP 115/70; PULSE 62; TEMP 36.7; O2SAT 95
[2024-10-06] MEDS: Lidocaine 4 % Patch ADH..PATCH 1 PATCH TRANSDERMA (22:13)
[2024-10-06 22:18] VITALS: BP 115/70; PULSE 62; RESP 16; TEMP 36.7; O2SAT 95
== END 2024-10-06 22:19 | disposition home or self-care (01) ==
PROVIDERS: Emergency Provider Emergency Medicine
DX: S20.213A Contusion of bilateral front wall of thorax, initial encounter (principal); S30.0XXA Contusion of lower back and pelvis, initial encounter; X58.XXXA Exposure to other specified factors, initial encounter; W10.9XXA Fall (on) (from) unspecified stairs and steps, initial encounter; Y93.9 Activity, unspecified; Y92.9 Unspecified place or not applicable; Y99.8 Other external cause status
CPT/HCPCS: 72100; 96372; 99284; J1100

== ENCOUNTER → 2024-10-06 20:14 | Outpatient (BNV) | payer OTHER, SELFPAY | PROVIDERS: Visit Provider Specialist | DX: M54.50 Low back pain, unspecified (principal); S39.92XA Unspecified injury of lower back, initial encounter | CPT/HCPCS: 72100 ==

== ENCOUNTER 2024-10-16 12:21 | Emergency (ER) | payer OTHER, SELFPAY ==
--- NOTE | ~2024-10-16 | CT_ITS ---
EXAMINATION: CT CHEST WITHOUT CONTRAST CLINICAL INFORMATION: Injury. Concerning rib fracture. COMPARISON: None available. TECHNIQUE: Multidetector volumetric CT imaging of the chest was done. Axial MIP volume rendering provided. Sagittal and coronal reformatted images were obtained. This CT examination was performed using dose optimization techniques as appropriate, variously including the following: *Automated exposure control *Adjustment of mA and/or kV according to patient size (this includes techniques or standardized protocols for targeted exams where dose is matched to indication/reason for exam; i.e. extremities or head) *Use of iterative reconstruction technique DLP: 269.48 mGy centimeter. FINDINGS: RESIDENTIAL SALES ASSOCIATE: Cardiomediastinal silhouette size is normal. Upper extremities at both sides of the head. LUNGS: No consolidation. No contusion. No bronchiectasis. Honeycombing. The airway is patent. MEDIASTINUM: No pneumomediastinum. No hemopericardium. No hematoma. No aneurysm, thoracic aorta. No pericardial effusion. No lymphadenopathy. The thyroid gland is not enlarged.. CORONARY ARTERY CALCIFICATION: None visualized on this study. PLEURA: No pneumothorax. No hemothorax. No calcified pleural plaques. No pleural effusion. AXILLA: No lymphadenopathy. UPPER ABDOMEN: Stool in the large intestine. No gross hydronephrosis in the included kidneys. Normal diameter of the proximal/suprarenal abdominal aorta. OSSEOUS STRUCTURES: Superior endplate compression deformity representing 20-30% volume loss without retropulsion at T9 vertebra without extending into the posterior elements. Small volume hematoma, prevertebral compartment at T9. No hyperdensity within the central spinal canal. No acute rib fracture. Scapula and clavicles are intact. Sternum is intact. There is a subcentimeter fat density lesion within the muscle plane of the posterior left thorax. CT/CT chest wo IV con IMPRESSION: Acute superior endplate compression fracture deformity at representing 20-30% volume loss without retropulsion at T9 and associated small volume prevertebral compartment hematoma. Consider further imaging evaluation with MRI thoracic spine to exclude injury to the neural elements. Fleischner guidelines were followed. Electronically signed by: Josué Barragan MD 10/16/2024 03:00 PM EDT
--- NOTE | ~2024-10-16 | CT_ITS ---
EXAMINATION: CT ABDOMEN AND PELVIS WITHOUT CONTRAST CLINICAL INFORMATION: Flank pain DLP: 476 mGY*cm COMPARISON: November 07, 2022 TECHNIQUE: Multidetector volumetric imaging was performed from the superior aspect of the liver through the pubic symphysis. Sagittal and coronal reformatted images were obtained on the technologist's workstation. This CT examination was performed using dose optimization techniques as appropriate, variously including the following: *Automated exposure control *Adjustment of mA and/or kV according to patient size (this includes techniques or standardized protocols for targeted exams where dose is matched to indication/reason for exam; i.e. extremities or head) *Use of iterative reconstruction technique FINDINGS: LUNG BASES: The visualized lung bases are unremarkable. LIVER, GALLBLADDER, AND BILIARY TREE: The liver is normal in size, shape, and attenuation. No focal hepatic lesion or biliary ductal dilatation is present. The gallbladder is unremarkable with no evidence of radiopaque gallstones, gallbladder wall thickening, or obvious pericholecystic inflammatory changes. PANCREAS: Unremarkable. SPLEEN: Unremarkable. ADRENAL GLANDS: Unremarkable. KIDNEYS AND URETERS: The kidneys are normal in size, shape, and attenuation. No hydronephrosis, hydroureter, or calculi seen. No perinephric stranding. Stone present in the distal right ureter on the prior examination has passed. BLADDER: Unremarkable. GASTROINTESTINAL TRACT: The small and large bowel are unremarkable. The appendix is unremarkable. ABDOMINAL WALL: No significant hernia is appreciated. LYMPH NODES: Normal. VASCULAR: Unremarkable. PELVIC VISCERA: Unremarkable. OSSEOUS STRUCTURES: Unremarkable. CT/CT abdomen pelvis wo IV con IMPRESSION: Unremarkable abdomen pelvis CT. Fleischner guidelines were followed. Electronically signed by: Curry Grady MD 10/16/2024 03:02 PM EDT
--- NOTE | ~2024-10-16 | MR_ITS ---
CLINICAL HISTORY: T9 compressive fx with hematoma MR thoracic spine without gadolinium Comparison: CT/SR - CT CHEST WITHOUT IV CONTRAST - 10/16/24 14:28 EDT Findings: Normal alignment. There is a mild acute compression fracture of the superior endplate of T9. There is extension to the posterior cortex without retropulsion of bone. There is severe bone marrow edema at an adjacent to the fracture site. There is edema of the adjacent soft tissues without measurable hematoma. No hematoma within the central canal. No central canal narrowing. Unremarkable thoracic cord. There is an 8 mm hemangioma within the left pedicle at T2. Two additional subcentimeter hemangiomas are present within the T5 vertebral body. No significant spinal canal or foraminal stenoses. No significant degenerative change. Paraspinous musculature intact. IMPRESSION: 1. Mild acute compression fracture at T9. This document has been electronically signed by: Maria Dolores Sanchez MD on 10/16/2024 18:32:42
--- NOTE | 2024-10-16 12:25 | ED.GENADULT ---
HPI - General Adult General Chief complaint: General Medical Stated complaint: Fall 2 week ago, abd pain worsening both sides Time Seen by Provider: 10/16/24 14:08 Source: patient Mode of arrival: ambulatory Limitations: no limitations History of Present Illness HPI narrative: This is a 49 years old male presented to the emergency department complaining of bilateral back pain and flank pain he stated that he fell couple of weeks ago he was seen in the this emergency department on October 06 is still having a lot of pain he is concerned that he may have rib fracture.CXR was not done in the prior ED visit Onset (ago): week(s) (2) Location: back Radiation: non-radiation Severity: moderate Quality: aching Pain Consistency: constant Relieving factors: none Exacerbating factors: none Associated symptoms: denies other symptoms Treatments prior to arrival: none Related Data Previous Rx's ?Medication ?Instructions ?Recorded tramadol 50 mg tablet 50 mg PO Q6H PRN pain #20 tabs 11/07/22 hydrocodone 5 mg-acetaminophen 325 1 tab PO Q8H PRN severe pain 10/06/24 mg tablet (scale score 7-10) #10 tabs Allergies Allergy/AdvReac Type Severity Reaction Status Date / Time No Known Allergies Allergy Verified 10/16/24 12:26 Review of Systems Constitutional: Constitutional: Reports no additional constitutional complaints ENT: Reports system reviewed and no additional complaints, except as documented Gastrointestinal: Gastrointestinal: Reports no additional gastrointestinal complaints PMFSH Past Medical History Attestation statement: The following information was validated with the patient. Social History Social History Alcohol intake: never Smoked in Last 30 Days: Yes Use of substances other than those prescribed or required for medical reasons: Yes Substance Use Type: Marijuana Substance Use Frequency: Weekly Advance Directives: No Advance Directives Information Provided: Yes Do you have a plan to hurt others: No Plan Physical Exam ED Exam Exam: He looks well is not toxic-appearing Vital Signs: Vital Signs - 24 hr 10/16/24 12:26 10/16/24 13:59 10/16/24 14:03 Temperature 97.8 F 98.0 F 98.0 F Pulse Rate 102 H 73 73 Respiratory Rate 18 16 16 Blood Pressure 120/68 108/64 108/64 Pulse Oximetry 98 98 98 Oxygen Delivery Method Room Air Room Air Room Air 10/16/24 18:13 10/16/24 19:33 Temperature 97.8 F 98.7 F Pulse Rate 74 74 Respiratory Rate 16 16 Blood Pressure 117/68 119/66 Pulse Oximetry 98 95 Oxygen Delivery Method Room Air Room Air BMI result Body Mass Index 27.6 Const General: cooperative Nutritional Appearance: average body habitus Orientation/consciousness: patient oriented x3 Limitations: no limitations HENMT Head: Yes normal to inspection Face and sinus: Yes normal facial exam Mouth: Normal oral and palatal mucosa present Neck Neck: Yes normal visual inspection Chest Chest palpation & inspection: normal inspection of the chest Resp Effort & Inspection: normal respiratory effort Auscultation: clear to auscultation bilaterally Cardio Jugular venous distension: no JVD Rate: regular rate GI Inspection: Yes normal to inspection Palpation (GI): Soft to palpation, not firm and nontender Percussion: Yes normal to percussion Skin General skin exam: no rashes or lesions noted, elasticity normal and turgor normal Neuro General: patient oriented x3 Course Course Course Narrative: This is a rapid medical exam performed by Marcellus Benedict NP: Additional HPI, ROS, PE not included below will be deferred to primary provider. Patient is a 49-year-old male presenting to the ED with complaint of bilateral flank pain. Seen here after a fall on 10/06, dx with rib contusions. Denies hematuria. Requesting an MRI. Discussed with patient that he can have a conversation about imaging with primary provider. Plan: labs, UA Reevaluation(s) Reevaluation #1: ct showed T2 compressive FX with hematoma,MRI ordered,waiting for MRI I am off shift nowe case signed out to Dr Conway Time: 16:31 Medications Administered Discontinued Medications Generic Name Dose Route Start Last Admin Trade Name Freq PRN Reason Stop Dose Admin Dexamethasone 10 mg 10/16/24 20:23 10/16/24 20:56 Dexamethasone 2 Mg Tablet PO 10/16/24 20:24 10 mg ONCE ONE Administration Oxycodone HCl 10 mg 10/16/24 16:01 10/16/24 18:11 Oxycodone Hcl Immed Release 5 Mg Tablet PO 10/16/24 16:02 10 mg ONCE ONE Administration Medical Decision Making Medical Decision Making [facility] Narrative: Patient is here complaining of flank pain the back pain we will obtain imaging 830 pm patient is re-evaluated patient apparently had a fall on 10/03/24 on [address] stairs slipped and fell hitting the edge of the step to his lower thoracic spine since then been having pain patient was seen here on 10/06 and earlier today MRI showed acute compression fracture at T9 with severe bone marrow edema there is extension to the posterior cortex without retropulsion of the bone. 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 With a sent to the [facility] for neurosurgery input meanwhile patient was given Decadron 10 mg p.o. Case discussed with neurosurgeon MARIIA at [facility] [place] advised pain control and maybe vertebroplasty as outpatient if pain continues no need for steroids. Patient is ambulatory in steady gait discharge patient home on oxycodone Differential Diagnosis Differential Diagnoses: The differential diagnosis associated with the presentation includes Rib fracture/kidney stones/musculoskeletal pain Admission/Observation Consideration of admission/observation: Escalation of care including admission/observation considered Lab Data [facility] Lab Attestation statement: I reviewed the patient's lab results. 10/16/24 13:29 10/16/24 13:29 Labs: Lab Results 10/16/24 10/16/24 Range/Units 13:29 14:14 WBC 7.3 (4.8-10.8) X10*3/uL RBC 5.20 (4.60-5.80) X10*6/uL Hgb 13.3 L (14.0-18.0) g/dl Hct 42.4 (42.0-52.0) % MCV 81.5 (80.0-98.0) fL MCH 25.6 L (27.0-33.0) pg MCHC 31.4 (31.0-36.0) g/dl RDW 13.5 (11.0-16.0) % Plt Count 253 (160-400) X10*3/uL MPV 11.4 (9.4-12.4) fL Immature Gran % (Auto) 0.3 (0.0-0.4) % Neut % (Auto) 67.1 (45-73) % Lymph % (Auto) 21.5 (20-40) % [place] % (Auto) 9.1 (2-11) % Eos % (Auto) 1.7 (0-4) % Baso % (Auto) 0.3 (0-2) % Lymph # (Auto) 1.6 (1.2-4.9) X10*3/uL [place] # (Auto) 0.7 (0.1-1.2) X10*3/uL Eos # (Auto) 0.1 (0.0-0.4) X10*3/uL Baso # (Auto) 0.0 (0.0-0.2) X10*3/uL Abs Immat Gran (auto) 0.02 (0.00-0.03) X10*3/uL Absolute Neuts (auto) 4.9 (2.0-8.3) x10*3/uL Absolute Nucleated RBC 0.000 (0.0-0.012) X10*3/uL Nucleated RBC % (auto) 0.0 (0.0-0.2) /100WBC Sodium 144 (135-145) mmol/L Potassium 3.9 (3.3-5.1) mmol/L Chloride 110 H (96-108) mmol/L Carbon Dioxide 29 (22-29) mmol/L Anion Gap 9 L (12-20) BUN 17 H (9-16) mg/dL Creatinine 0.82 (0.5-1.4) mg/dL Estim Creat Clear Calc 108.9 Estimated GFR > 60 Random Glucose 91 (60-115) mg/dL Calcium 9.2 (8.4-10.2) mg/dL Total Bilirubin 0.5 (0.0-1.0) mg/dL AST 22 (5-37) U/L ALT 31 (0-40) U/L Alkaline Phosphatase 117 (39-117) U/L Total Protein 6.5 (6.5-8.0) g/dL Albumin 4.1 (3.5-5.0) g/dL Urine Color Yellow Urine Appearance Clear Urine pH 6.0 (5.0-9.0) Ur Specific [place] 1.020 (1.005-1.025) Urine Protein Negative (Neg-Trace) mg/dL Urine Glucose (UA) Negative (Negative) mg/dL Urine Ketones Negative (Negative) mg/dL Urine Blood Negative (Negative) Urine Nitrite Negative (Negative) Ur Leukocyte Esterase Negative (Negative) Independent Interpretation I performed an independent interpretation of an: MRI Radiology Impression Discussion of test interpretation with radiology: I have reviewed the radiologist's reading. Radiologist Impression: [address] [address] Magnetic Resonance Report Signed Patient: Yasmani Camacho MR#: [id number] : 1975 Acct:[id number] Age/Sex: 49 / M ADM Date: 10/16/24 Loc: HO.ED Attending Dr: Ordering Physician: Alexys Pierson MD Date of Service: 10/16/24 Procedure(s): MR thoracic spine wo con Accession Number(s): [id number] cc: Alexys Pierson MD; Physician,None ~ CLINICAL HISTORY: T9 compressive fx with hematoma MR thoracic spine without gadolinium Comparison: CT/SR - CT CHEST WITHOUT IV CONTRAST - 10/16/24 14:28 EDT Findings: Normal alignment. There is a mild acute compression fracture of the superior endplate of T9. There is extension to the posterior cortex without retropulsion of bone. There is severe bone marrow edema at an adjacent to the fracture site. There is edema of the adjacent soft tissues without measurable hematoma. No hematoma within the central canal. No central canal narrowing. Unremarkable thoracic cord. There is an 8 mm hemangioma within the left pedicle at T2. Two additional subcentimeter hemangiomas are present within the T5 vertebral body. No significant spinal canal or foraminal stenoses. No significant degenerative change. Paraspinous musculature intact. IMPRESSION: 1. Mild acute compression fracture at T9. This document has been electronically signed by: Maria Dolores Sanchez MD on 10/16/2024 18:32:42 Discharge Plan Discharge Clinical Impression: Closed wedge compression fracture of T2 vertebra Qualifiers: Encounter type: initial encounter Qualified Code(s): S22.020A - Wedge compression fracture of second thoracic vertebra, initial encounter for closed fracture Prescriptions: No Action tramadol 50 mg tablet 50 mg PO Q6H PRN (Reason: pain) Qty: 20 0RF hydrocodone-acetaminophen 5-325 mg tablet 1 tab PO Q8H PRN (Reason: severe pain (scale score 7-10)) Qty: 10 0RF Rx Instructions: Partial Fill upon patient request. Print Language: [place] Islander
[2024-10-16 12:26] VITALS: BP 120/68; PULSE 102; RESP 18; TEMP 36.6; O2SAT 98; BMI 27.6
[2024-10-16 13:50] LABS: MANUAL DIFF FLAG NO
[2024-10-16 13:56] LABS: Hematocrit 42.4 % (42.0-52.0); Hemoglobin 13.3 g/dl (14.0-18.0); Imm Gran Abs Auto 0.02 X10*3/uL (0.00-0.03); Imm Gran Pct Auto 0.3 % (0.0-0.4); Lymphocytes Absolute Auto 1.6 X10*3/uL (1.2-4.9); Mean Corpuscular HGB Conc 31.4 g/dl (31.0-36.0); Mean Corpuscular Hemoglobin 25.6 pg (27.0-33.0); Mean Corpuscular Volume 81.5 fL (80.0-98.0); NRBC Abs Auto 0.000 X10*3/uL (0.0-0.012); NRBC Pct Auto 0.0 /100WBC (0.0-0.2); Platelet Count 253 X10*3/uL (160-400); Red Blood Count 5.20 X10*6/uL (4.60-5.80); White Blood Count 7.3 X10*3/uL (4.8-10.8)
[2024-10-16 13:59] VITALS: BP 108/64; PULSE 73; RESP 16; TEMP 36.7; O2SAT 98
[2024-10-16 14:03] VITALS: BP 108/64; PULSE 73; RESP 16; TEMP 36.7; O2SAT 98
--- NOTE | 2024-10-16 14:03 | PC.NURSE ---
Patient presents to Ed c/o back pain rated 8/10 radiates to tail bone. Patient reports falling with a fracture 2 weeks ago and came to [facility]. Patient reports feeling more pain in back that radiates down to tail bone and reports having episodes of feeling an electrical shock goes up his spine. Denies SOB, dizziness, lightheadedness, n/v, vision changes. No thinners. VSS and up to date. Provider in to see patient. Plan of care on going.
[2024-10-16 14:07] LABS: Alanine Aminotransferase 31 U/L (0-40); Albumin Level 4.1 g/dL (3.5-5.0); Alkaline Phosphatase 117 U/L (39-117); Anion Gap 9 (12-20); Aspartate Amino Transferase 22 U/L (5-37); Blood Urea Nitrogen 17 mg/dL (9-16); Calcium 9.2 mg/dL (8.4-10.2); Carbon Dioxide 29 mmol/L (22-29); Chloride 110 mmol/L (96-108); Creatinine Clr Calc Pharmacy 108.9; Estimated Glomerular Filt Rate > 60; Potassium 3.9 mmol/L (3.3-5.1); Sodium 144 mmol/L (135-145); Total Protein 6.5 g/dL (6.5-8.0)
--- NOTE | 2024-10-16 14:27 | ED_ITS ---
HPI - General Adult General Chief complaint: General Medical Stated complaint: Fall 2 week ago, abd pain worsening both sides Time Seen by Provider: 10/16/24 14:08 Related Data Previous Rx's ?Medication ?Instructions ?Recorded tramadol 50 mg tablet 50 mg PO Q6H PRN pain #20 ta bs 11/07/22 hydrocodone 5 mg-acetaminophen 325 1 tab PO Q8H PRN se miriam pain 10/06/24 mg tablet (scale score 7-10) #10 tabs Allergies Allergy/AdvReac Type Severity Reaction Status Date / Time No Known Allergies Allergy Verified 10/16/24 12:26 [facility] Social History Social History Alcohol intake: never Smoked in Last 30 Days: Yes Use of substances other than those prescribed or required for medical reasons: Yes Substance Use Type: Marijuana Substance Use Frequency: Weekly Advance Directives: No Advance Directives Information Provided: Yes Do you have a plan to hurt others: No Plan Physical Exam ED Vital Signs: Vital Signs - 24 hr 10/16/24 12:26 10/16/24 13:59 10/16/24 14:03 Temperature 97.8 F 98.0 F 98.0 F Pulse Rate 102 H 73 73 Respiratory Rate 18 16 16 Blood Pressure 120/68 108/64 108/64 Pulse Oximetry 98 98 98 Oxygen Delivery Method Room Air Room Air Room Air BMI result Body Mass Index 27.6 Course Reevaluation(s) Reevaluation #1: CT chest showed T9 compressive fx 20-30 %; small volume prevertebral compartmental hematoma,MRI was ordered by me . I am off shift now case was signed out to Dr Conway Time: 16:04 Medical Decision Making Lab Data 10/16/24 13:29 10/16/24 13:29 Labs: Lab Results 10/16/24 10/16/24 Range/Units 13:29 14:14 WBC 7.3 (4.8-10.8) X10*3/uL RBC 5.20 (4.60-5.80) X10*6/uL Hgb 13.3 L (14.0-18.0) g/dl Hct 42.4 (42.0-52.0) % MCV 81.5 (80.0-98.0) fL MCH 25.6 L (27.0-33.0) pg MCHC 31.4 (31.0-36.0) g/dl RDW 13.5 (11.0-16.0) % Plt Count 253 (160-400) X10*3/uL MPV 11.4 (9.4-12.4) fL Immature Gran % (Auto) 0.3 (0.0-0.4) % Neut % (Auto) 67.1 (45-73) % Lymph % (Auto) 21.5 (20-40) % [place] % (Auto) 9.1 (2-11) % Eos % (Auto) 1.7 (0-4) % Baso % (Auto) 0.3 (0-2) % Lymph # (Auto) 1.6 (1.2-4.9) X10*3/uL [place] # (Auto) 0.7 (0.1-1.2) X10*3/uL Eos # (Auto) 0.1 (0.0-0.4) X10*3/uL Baso # (Auto) 0.0 (0.0-0.2) X10*3/uL Abs Immat Gran (auto) 0.02 (0.00-0.03) X10*3/uL Absolute Neuts (auto) 4.9 (2.0-8.3) x10*3/uL Absolute Nucleated RBC 0.000 (0.0-0.012) X10*3/uL Nucleated RBC % (auto) 0.0 (0.0-0.2) /100WBC Sodium 144 (135-145) mmol/L Potassium 3.9 (3.3-5.1) mmol/L Chloride 110 H (96-108) mmol/L Carbon Dioxide 29 (22-29) mmol/L Anion Gap 9 L (12-20) BUN 17 H (9-16) mg/dL Creatinine 0.82 (0.5-1.4) mg/dL Estim Creat Clear Calc 108.9 Estimated GFR > 60 Random Glucose 91 (60-115) mg/dL Calcium 9.2 (8.4-10.2) mg/dL Total Bilirubin 0.5 (0.0-1.0) mg/dL AST 22 (5-37) U/L ALT 31 (0-40) U/L Alkaline Phosphatase 117 (39-117) U/L Total Protein 6.5 (6.5-8.0) g/dL Albumin 4.1 (3.5-5.0) g/dL Urine Color Yellow Urine Appearance Clear Urine pH 6.0 (5.0-9.0) Ur Specific [place] 1.020 (1.005-1.025) Urine Protein Negative (Neg-Trace) mg/dL Urine Glucose (UA) Negative (Negative) mg/dL Urine Ketones Negative (Negative) mg/dL Urine Blood Negative (Negative) Urine Nitrite Negative (Negative) Ur Leukocyte Esterase Negative (Negative) Discharge Plan Discharge Clinical Impression: Closed wedge compression fracture of T2 vertebra Qualifiers: Encounter type: initial encounter Qualified Code(s): S22.020A - Wedge compression fracture of second thoracic vertebra, initial encounter for closed fracture Prescriptions: No Action tramadol 50 mg tablet 50 mg PO Q6H PRN (Reason: pain) Qty: 20 0RF hydrocodone-acetaminophen 5-325 mg tablet 1 tab PO Q8H PRN (Reason: severe pain (scale score 7-10)) Qty: 10 0RF Rx Instructions: Partial Fill upon patient request. Print Language: Danish
--- OUTSIDE RECORDS SUMMARY | 2024-10-16 14:38 | XMS_ITS | Clinical Summary ---
Author Organization [facility] ity Address [address] [place] [address] Care Team Providers Care Prom Burn Off Operator Name Role Phone Ehsan Rivera MD Primary [...] Vaccine ( - 2023-2 5 season) 2023 Depression Screening 03/27/2024 Influenza Vaccine (#1) 2024 HIB Vaccines Aged [...] age to complete this topic Care Teams Prom Burn Off Operator Relationship Specialty Start Date End Date Ehsan Rivera MD [address] [place] [address] STEVEN SANCHEZ [id number] PCP - General Internal Medicine 06/24/19
--- OUTSIDE RECORDS SUMMARY | 2024-10-16 14:38 | XMS_ITS | Clinical Summary ---
Author Organization [facility] Address [address] [place] [address] Care Team Providers Care Boiler Fireman Name Role Phone Aayush Dinh MD Primary Care Provider Source Comments PLEASE NOTE, if this patient is a minor, it may be UNLAWFUL to discuss sensitive information that is contained in these records (such as FAMILY PLANNING, MENTAL HEALTH or SUBSTANCE ABUSE) with the minor patient's parent or other person without the patient's specific authorization.[facility] Allergies No known active allergies Medications meclizine (ANTIVERT) 25 mg tabletIndicatio ns:Dizziness of unknown etiology Take 1 Tablet by mouth 2 (two) times daily as needed for dizziness 30 Tablet 1 Active sildenafiL (VIAGRA) 50 mg tablet Take 1 Tablet by mouth once daily as needed for erectile dysfunction 10 Tablet 3 1 Active Active Problems Problem Noted Date Diagnosed Date 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 Immunizations Immunization Administration Dates Next Due Moderna COVID-19 Vaccine, re d cap blue label, 12+ Primary Series 08/27/2020,07/24/2020 Social History Tobacco Use Types Packs/Day Years Used Date Smoking Tobacco: Former Cigarettes 0.3 6 1 - 01/08/1998 Smokeless Tobacco: Never Alcohol Use Standard Drinks/Week Comments Yes 0 (1 standard drink = 0.6 oz pur e alcohol) occasional Social Connections Answer Date Recorded Connectedness 0 01/08/2021 Financial Resource Strain Answer Date R ecorded Financial Resource Strain 0 2020 Stress Answer Date Recorded Stress 0 01/08/2021 Physical Activity Answer Date Recorded Physical Activity 0 11/18/2018 Food Insecurity Answer Date Recorded Food 0 01/08/2021 Transportation Needs Answer Date Record ed Transportation 0 01/08/2021 Housing Stability Answer Date Recorded Housing 0 01/08/2021 Safety and Environment Answer Date Stan rded Safety 0 11/18/2018 Utilities Answer Date Recorded Utilities 0 01/08/2021 Employment Answer Date Recorded Employment 0 11/18/2018 Sex and Gender Information Value Date Recorded Sex Assigned at Male 01/09/2017 9:11 AM PDT Legal Sex Male 8:13 AM PDT Gender Identity Male 01/09/2017 9:11 AM PDT Sexual Orientation Straight 01/09/2017 9: 11 AM PDT Last Filed Vital Signs Vital Sign Reading Time Taken Comments Blood Pressure 122/80 01/08/2021 2:47 PM EDT Pulse 85 01/08/2021 2:47 PM EDT Temperature 37 C (98.6 F) 01/08/2021 2:47 PM EDT Respiratory Rate 16 01/08/2021 2:47 PM EDT Oxygen Saturation 97% 01/08/2021 2:47 PM EDT Inhaled Oxygen Concentration - - Weight 87.5 kg (193 lb) 01/08/2021 2:47 PM EDT Height 180.3 cm (5' 11 ) 01/08/2021 2:47 PM EDT Body Mass Index 26.92 01/08/2021 2:47 PM EDT Plan of Treatment Health Maintenance Due Date Last Done Comments Anxiety Screening 1975 Tobacco Screening 1975 Imm-DTaP/Tdap/Td (1 - Tdap) 09/21/1994 Imm-Hepatitis A (1 of 2 - Ri sk 2-dose series) 09/21/1994 Imm-Hepatitis B (1 of 3 - 19 + 3-dose series) 09/21/1994 CT Colonography 09/21/2020 Colonoscopy 09/21/2020 Colorectal Cancer Screening 09/21/2020 FIT/gFOBT 09/21/2020 Fecal DNA 09/21/2020 Flexible Sigmoidoscopy 09/21/2020 Diabetes Screening 11/16/2021 11/16/2020, 0 11/16/2020, 06/24/2019, Additional history exists Annual Wellness (Adult): Ind icated (All Coverage) 01/08/2022 01/08/2021, 08/29/2016 Hypertension Screening (#1) 01/08/2022 [id number] ( season) 2023 021, 07/24/2020 Alcohol and Drug Screen 03/27/2024 01/08/2021, 08/29 Depression Annual Screen 03/27/2024 Imm-Influenza (#1) 2024 Lipid Screening 11/16/2025 11/16/2020, 08/29/2016 HIV Screening Completed 11/10/2020, 06/24/2019 Hepatitis C Screening Completed 11/10/2020 Procedures Procedure Name Priority Date/Time Associated Diagnosis Comments COMPREHENSIVE METABOLIC PANEL Routine 11/16/2020 8:50 AM EDT Dizziness of unknown etiology LIPID PANEL Routine 11/16/2020 8:50 AM EDT Dizziness of unknown etiology HIV 1/2 AG & AB W/RFLX (4TH GEN) Routine 11/10/2020 3:22 PM EDT Concern about STD in male without diagnosis ACUTE HEPATITIS PANEL W/RFLX Routine 11/10/2020 3:22 PM EDT Concern about STD in male without diagnosis from Last 3 Months or Most Recently Relevant to Health Maintenance Results * LIPID PANEL (11/16/2020 8:50 AM EDT) CHOLESTEROL, TOTAL 148 <200 mg/dL [facility] HDL CHOLESTEROL 44 > OR = 40 mg/dL [facility] TRIGLYCERIDES 43 <150 mg/dL [facility] LDL-CHOLESTEROL 91 99 mg/dL (calc) [facility] Comment: Reference range: <100 Desirable range <100 mg/dL for primary prevention; <70 mg/dL for patients with CHD or diabetic patients with > or = 2 CHD risk factors. LDL-C is now calculated using the Mak calculation, which is a validated novel method providing better accuracy than the Friedewald equation in the estimation of LDL-C. Devonte HI et al. STANLEY. 2013;310(19): 6278-3485 (http://education.[employer].tocario/faq/NLE430) CHOL/HDLC RATIO 3.4 <5.0 (calc) [facility] NON-HDL CHOLESTEROL 104 <130 mg/dL (calc) [facility] Comment: For patients with diabetes plus 1 major ASCVD risk factor, treating to a non-HDL-C goal of <100 mg/dL (LDL-C of <70 mg/dL) is considered a therapeutic option. Blood Blood / Unknown 11/16/2020 8 :50 AM EDT 11/16/2020 8:51 AM EDT Jeancarlos MONTEMAYOR LAB - BLOOD DRAW Edited Result - Final [facility] [address] [address], [facility] [address] [address] * COMPREHENSIVE METABOLIC PANEL (11/16/2020 8:50 AM EDT) GLUCOSE 97 65 - 99 mg/dL [facility] Comment: Fasting reference interval UREA NITROGEN (BUN) 21 7 - 25 mg/dL [facility] CREATININE (blood) 1.04 0.60 - 1.35 mg/dL [facility] GFR ESTIMATED 86 > OR = 60 mL/min/1 .73m2 [facility] EGFR 100 > OR = 60 mL/min/1 .73m2 [facility] BUN/CREATININE RATIO NOT APPLICABLE 6 - 22 [facility] SODIUM 142 135 - 146 mmol/L [facility] POTASSIUM 3.9 3.5 - 5.3 mmol/L [facility] CHLORIDE 107 98 - 110 mmol/L [facility] CARBON DIOXIDE 25 20 - 32 mmol/L [facility] CALCIUM 9.3 8.6 - 10.3 mg/dL [facility] PROTEIN, TOTAL 6.8 6.1 - 8.1 g/dL [facility] ALBUMIN 4.1 3.6 - 5.1 g/dL [facility] GLOBULIN 2.7 1.9 - 3.7 g/dL (calc) [facility] ALBUMIN/GLOBUL IN RATIO 1.5 1.0 - 2.5 (calc) [facility] BILIRUBIN, TOTAL 0.5 0.2 - 1.2 mg/dL [facility] ALKALINE PHOSPHATASE 89 36 - 130 U/L [facility] AST 12 10 - 40 U/L [facility] ALT 14 9 - 46 U/L [facility] Blood Blood / Unknown 11/16/2020 8 :50 AM EDT 11/16/2020 8:51 AM EDT Jeancarlos Sharyn HYDRO PNEUMATIC TESTER LAB - BLOOD DRAW Edited Result - Final [facility] [address] [address], [facility] [address] [address] * HIV 1/2 AG & AB W/RFLX (4TH GEN) (11/10/2020 3:22 PM EDT) [facility] HIV AG/AB, 4TH GEN NON-REAC TIVE NON-REAC TIVE [facility] Comment: HIV-1 antigen and HIV-1/HIV-2 antibodies were not detected. There is no laboratory evidence of HIV infection. PLEASE NOTE: This information has been disclosed to you from records whose confidentiality may be protected by state law. If your state requires such protection, then the state law prohibits you from making any further disclosure of the information without the specific written consent of the person to whom it pertains, or as otherwise permitted by law. A general authorization for the release of medical or other information is NOT sufficient for this purpose. For additional information please refer to http://education.[employer]/faq/QQZ871 (This link is being provided for informational/ educational purposes only.) The performance of this assay has not been clinically validated in patients less than 2 years old. Blood Blood / Unknown 11/10/2020 3 :22 PM EDT 11/10/2020 3:22 PM EDT us Hernando Bae PA-C LAB - BLOOD DRAW Final Result [facility] [address] [address], [facility] [place] [address] [address] from Last 3 Months or Most Recently Relevant to Health Maintenance Insurance [employer] ([employer]window [facility] [place]) Member Subscriber Plan / Payer (Ef fective 2016-Present) Name:Yasmani Fox Relation to Subscriber:Self Name:Yasmani Fox Payer ID:[id number] Group ID:Not on file Type:[employer] Address: [address] [place], [place] [id number] Care Teams Boiler Fireman Relationship Specialty Start Date End Date Aayush Dinh MD [facility] [place] [address] PCP - General Internal Medicine 11/14/20
[2024-10-16 15:10] LABS: Appearance Urine Clear; Glucose Urine UA Negative (Negative); PH 6.0 (5.0-9.0); Specific Gravity - Urine 1.020 (1.005-1.025)
[2024-10-16] MEDS: oxyCODONE HCl Immed Release 5 MG TABLET 10 MG PO (18:11)
[2024-10-16 18:13] VITALS: BP 117/68; PULSE 74; RESP 16; TEMP 36.6; O2SAT 98
[2024-10-16 19:33] VITALS: BP 119/66; PULSE 74; RESP 16; TEMP 37.1; O2SAT 95
[2024-10-16 21:40] VITALS: BP 117/84; PULSE 79; RESP 16; TEMP 36.6; O2SAT 98
== END 2024-10-16 21:41 | disposition home or self-care (01) ==
PROVIDERS: Registered Nurse Emergency; Emergency Provider Internal Medicine
DX: S22.020A Wedge compression fracture of second thoracic vertebra, initial encounter for closed fracture (principal); M54.50 Low back pain, unspecified; R10.2 Pelvic and perineal pain; M54.6 Pain in thoracic spine; X58.XXXA Exposure to other specified factors, initial encounter; Y93.9 Activity, unspecified; Y92.9 Unspecified place or not applicable; Y99.8 Other external cause status
CPT/HCPCS: 36415; 71250; 72146; 74176; 80053; 81003; 85025; 99284; 99285; J8540

== ENCOUNTER → 2024-10-16 14:26 | Outpatient (BNV) | payer OTHER, SELFPAY | PROVIDERS: Emergency Provider Emergency Medicine; Visit Provider Radiology Diagnostic Radiology | DX: R10.9 Unspecified abdominal pain (principal); S22.070A Wedge compression fracture of T9-T10 vertebra, initial encounter for closed fracture | CPT/HCPCS: 71250; 72146; 74176 ==

== ENCOUNTER 2024-11-08 12:05 | Outpatient (AMB) | payer OTHER, SELFPAY ==
--- NOTE | 2024-11-08 12:09 | A.OFFVIS_ITS ---
Vital Signs 11/08/24 12:10 Height 5 ft 9 in Weight 187 lb BMI 27.6 BP 110/59 L Blood Pressure Location Lt brachial Position Sitting Respiration 16 Pulse 79 Pulse Source Pulse Oximeter Pulse Oximetry (%) 96 Oxygen Delivery Method Room Air Intake Visit Reasons: ED referral closed wedge compression fracture Auto Self Service Station Attendant Required: No Allergies No Known Allergies Allergy (Verified 11/08/24 12:11) Medication List - Last Reconciled 11/08/24 by Doreen Cash LPN No Known Home Meds HPI HPI ED referral closed wedge compression fracture: Details: History of Present Illness The patient is a 49-year-old male presenting with back pain due to a compression fracture of the thoracic spine. The back pain began approximately one month ago following a fall down the stairs, which resulted in an acute compression fracture of the T9 vertebra as confirmed by MRI. The pain is rated at 7 out of 10 in intensity, significantly affecting his ability to sleep and perform daily activities. 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 The patient also reports low back pain associated with degenerative disc disease at the L5-S1 level. This condition was noted during the examination, and it contributes to his overall discomfort. Pain Description - Onset: Approximately one month ago after a fall down the stairs - Quality: Sharp pain - Location: Thoracic spine, specifically T9 - Intensity: 7/10 - Exacerbating factors: Movement, lifting objects - Relieving factors: Maintaining a straight posture, use of pain medications such as Tylenol and ibuprofen - Interference: Affects sleep and daily activities Physical Exam - Spine: Tenderness to palpation overlying the T9 vertebral body Results - MRI: Acute compression fracture of the T9 vertebra Pain Management - Affect: Pain impacts sleep and daily activities - Analgesia: Current pain level is 7/10; medications include Tylenol, ibuprofen, and lidocaine patches - Activities of Daily Living: Pain limits ability to work and perform daily tasks [facility] Medical History (Updated 10/29/24 @ 11:23 by Doreen Cash LPN) Closed wedge compression fracture of second thoracic vertebra Social History Alcohol intake: never Substance Use Type: Marijuana Physical Exam Vital Signs: Last Vital Signs Pulse 79 11/08/24 12:10 Resp 16 11/08/24 12:10 BP 110/59 L 11/08/24 12:10 Pulse Ox 96 08/15/25 12:10 Oxygen Delivery Method Room Air 11/08/24 12:10 BMI result Body Mass Index 27.6 Assessment & Plan Assessment & Plan (1) Closed wedge compression fracture of second thoracic vertebra: Code(s): S22.020A - Wedge compression fracture of second thoracic vertebra, initial encounter for closed fracture Category: Medical Plan Plan - Encourage maintaining a straight posture to aid in healing of the compression fracture. - Consider use of a brace if necessary, but focus on active posture correction. - Pain management with Tylenol, ibuprofen, and lidocaine patches. - Follow-up in three months if pain persists for potential procedures or physical therapy. Patient was informed and verbally consented to the use of an ambient scribe for clinic note documentation during this visit. Discussion Notes I discussed with the patient the nature of his compression fracture and the importance of maintaining a straight posture to facilitate healing. We talked about the option of using a brace, although I recommended focusing on active posture correction due to his young age. Pain management options were reviewed, including the use of Tylenol, ibuprofen, and lidocaine patches. I advised a follow-up in three months if pain persists, at which point we may consider further procedures or physical therapy. Unfortunately, curative kyphoplasty for traumatic VCF is not covered by insurance. Patient Instructions - Maintain a straight posture to help your back heal. - Use Tylenol, ibuprofen, and lidocaine patches for pain relief. - Consider using a brace if needed, but try to keep your posture straight without it. - Follow up in three months if pain continues. Coding Level of Care Code New Pt Level 4 (70258) Diagnoses Closed wedge compression fracture of second thoracic vertebra S22.020A
[2024-11-08 12:10] VITALS: BP 110/59; PULSE 79; RESP 16; O2SAT 96; BMI 27.6
== END 2024-11-08 12:37 | disposition home or self-care (01) ==
LOC: HO.PMC 12:06
PROVIDERS: Visit Provider Internal Medicine
DX: S22.020A Wedge compression fracture of second thoracic vertebra, initial encounter for closed fracture (principal)
CPT/HCPCS: 99204

== ENCOUNTER 2024-12-04 09:42 | Outpatient (AMB) | payer OTHER, SELFPAY ==
[2024-12-04 09:43] VITALS: BP 116/72; PULSE 85; RESP 16; O2SAT 99; BMI 27.5
--- NOTE | 2024-12-04 09:43 | MHC.OFFVIS ---
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 The injury occurred when the patient fell down the stairs approximately two months and one week ago, resulting in a compression fracture and a small volume hematoma in the thoracic spine. Initial CT scans revealed these findings, and over the past eight weeks, the patient has experienced a gradual decrease in pain. The patient reports that the pain is now resolved and does not find the injury limiting his ability to work. 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 Preventative care measures discussed include maintaining good ergonomic practices for spine care, such as keeping the back straight and lifting with the legs. Pain Description - Onset: Pain began after falling down the stairs approximately two months and one week ago. - Quality: Initially severe, now resolved. - Location: Thoracic spine. - Relieving factors: Time and rest have led to resolution of pain. Physical Exam - Appears afebrile. - Alert and oriented. - Mood and affect appropriate. - Follows and participates in conversation appropriately. - Respiratory effort is unlabored. - Able to transition from sit to stand unassisted. - Ambulates with bilaterally normal heel strike and toe off. - Able to stand and walk on toes and heels. Results - CT of the thoracic spine: Revealed a small volume hematoma and compression deformity without repulsion of the vertebral body. Pain Management - Affect: Patient reports no current pain, indicating resolution of symptoms. - Activities of Daily Living: Patient does not find the injury limiting and is interested in returning to full-time work. [facility] Medical History (Updated 10/29/24 @ 11:23 by Doreen Towse, RN INTERNATIONAL) Closed wedge compression fracture of second thoracic vertebra Social History Alcohol intake: never Substance Use Type: Marijuana Physical Exam Vital Signs: Last Vital Signs Pulse 85 12/04/24 09:43 Resp 16 12/04/24 09:43 BP 116/72 12/04/24 09:43 Pulse Ox 99 12/04/24 09:43 Oxygen Delivery Method Room Air 12/04/24 09:43 BMI result Body Mass Index 27.5 Assessment & Plan Assessment & Plan (1) Closed wedge compression fracture of second thoracic vertebra: Code(s): S22.020A - Wedge compression fracture of second thoracic vertebra, initial encounter for closed fracture Category: Medical Plan Plan Patient was informed and verbally consented to the use of an ambient scribe for clinic note documentation during this visit. 1. Traumatic Compression Fracture Of The Thoracic Spine - Plan: Patient cleared to return to work with no restrictions. Emphasis on ergonomic practices for spine care. - Follow-up: Patient to follow up as needed. Discussion Notes I discussed with the patient the clearance to return to work without restrictions, emphasizing the importance of maintaining good ergonomic practices for spine care. We also talked about the resolution of his pain symptoms and the plan for follow-up as needed. Patient Instructions - Maintain good ergonomic practices for spine care, such as keeping your back straight and lifting with your legs. - Follow up as needed if any new symptoms arise or if there are concerns about your spine health. Coding Level of Care Code Est Pt Level 3 (58198) Diagnoses Closed wedge compression fracture of second thoracic vertebra S22.020A
--- OUTSIDE RECORDS SUMMARY | 2024-12-04 11:32 | XMS_ITS | Clinical Summary ---
Author Organization [facility] Address [address] [place] [address] Care Team Providers Care Invasive Manager Name Role Phone Aayush Dinh MD Primary [...] 01/08/2022 01/08/2021, 08/29/2016 Hypertension Screening (#1) 01/08/2022 [id number] ( season) 2023 021, 07/24/2020 Alcohol and [...] AM EDT) CHOLESTEROL, TOTAL 148 <200 mg/dL [facility] HDL CHOLESTEROL 44 > OR = 40 mg/dL [facility] TRIGLYCERIDES 43 <150 mg/dL [facility] LDL-CHOLESTEROL 91 99 mg/dL (calc) [facility] Comment: Reference range: <100 Desirable range <100 mg/dL for primary prevention; <70 mg/dL for patients with CHD or diabetic patients with > or = 2 CHD risk factors. LDL-C is now calculated using the Mak calculation, which is a validated novel method providing better accuracy than the Friedewald equation in the estimation of LDL-C. Devonte HI et al. STANLEY. 2013;310(19): 1789-9085 (http://education.[employer].WillCall/faq/HRQ040) CHOL/HDLC RATIO 3.4 <5.0 (calc) [facility] NON-HDL CHOLESTEROL 104 <130 mg/dL (calc) [facility] Comment: For patients with diabetes plus 1 major ASCVD risk factor, treating to a non-HDL-C goal of <100 mg/dL (LDL-C of <70 mg/dL) is considered a therapeutic option. Blood Blood / Unknown 11/16/2020 8 :50 AM EDT 11/16/2020 8:51 AM EDT Jeancarl[facility] MONTEMAYOR [facility] - BLOOD DRAW Edited Result - Final [facility] [address] [address], [facility] [address] [address] * COMPREHENSIVE METABOLIC PANEL (11/16/2020 8:50 AM EDT) GLUCOSE 97 65 - 99 mg/dL [facility] Comment: Fasting reference interval UREA NITROGEN (BUN) 21 7 - 25 mg/dL [facility] CREATININE (blood) 1.04 0.60 - 1.35 mg/dL [facility] GFR ESTIMATED 86 > OR = 60 mL/min/1 .73m2 [facility] EGFR 100 > OR = 60 mL/min/1 .73m2 [facility] BUN/CREATININE RATIO NOT APPLICABLE 6 - 22 [facility] SODIUM 142 135 - 146 mmol/L [facility] POTASSIUM 3.9 3.5 - 5.3 mmol/L [facility] CHLORIDE 107 98 - 110 mmol/L [facility] CARBON DIOXIDE 25 20 - 32 mmol/L [facility] CALCIUM 9.3 8.6 - 10.3 mg/dL [facility] PROTEIN, TOTAL 6.8 6.1 - 8.1 g/dL [facility] ALBUMIN 4.1 3.6 - 5.1 g/dL [facility] GLOBULIN 2.7 1.9 - 3.7 g/dL (calc) [facility] ALBUMIN/GLOBUL IN RATIO 1.5 1.0 - 2.5 (calc) [facility] BILIRUBIN, TOTAL 0.5 0.2 - 1.2 mg/dL [facility] ALKALINE PHOSPHATASE 89 36 - 130 U/L [facility] AST 12 10 - 40 U/L [facility] ALT 14 9 - 46 U/L [facility] Blood Blood / Unknown 11/16/2020 8 :50 AM EDT 11/16/2020 8:51 AM EDT Jeancarlos Sharyn CHIEF TECHNICAL OFFICER LAB - BLOOD DRAW Edited Result - Final [facility] [address] [address], [facility] [address] [address] * HIV 1/2 AG & AB W/RFLX (4TH GEN) (11/10/2020 3:22 PM EDT) [facility] HIV AG/AB, 4TH GEN NON-REAC TIVE NON-REAC TIVE [facility] Comment: HIV-1 antigen and HIV-1/HIV-2 antibodies [...] purpose. For additional information please refer to http://education.[employer]/faq/YQB260 (This link is being provided for informational/ educational purposes only.) The performance of this assay has not been clinically validated in patients less than 2 years old. Blood Blood / Unknown 11/10/2020 3 :22 PM EDT 11/10/2020 3:22 PM EDT us Hernando Bae PA-C LAB - BLOOD DRAW Final Result [facility] [address] [address], [facility] [place] [address] [address] from Last 3 Months or Most Recently Relevant to Health Maintenance Insurance [employer] ([employer] [facility]) Member Subscriber Plan / Payer (Ef fective 2016-Present) Name:Yasmani Fox Relation to Subscriber:Self Name:Yasmani Fox Payer ID:[id number] Group ID:Not on file Type:[employer] Address: [address] [place], [place] [id number] Care Teams Invasive Manager Relationship Specialty Start Date End Date Aayush Dinh MD [facility] [place] [address] PCP - General Internal Medicine 11/14/20
== END 2024-12-04 10:47 | disposition home or self-care (01) ==
PROVIDERS: Visit Provider Internal Medicine
DX: S22.020A Wedge compression fracture of second thoracic vertebra, initial encounter for closed fracture (principal)
CPT/HCPCS: 99213